=== PATIENT | male | born 1965 | race African-American/Black ===

== ENCOUNTER 2019-02-11 14:26 | Emergency (ER) | payer OTHER ==
[2019-02-11 14:54] VITALS: BP 150/95; TEMP 98.3
[2019-02-11] MEDS ORDERED: methylPREDNISolone SOD SUCCI 125 MG/2 ML VIAL IM ONE (15:13)
[2019-02-11] MEDS ORDERED: IPRATROPIUM-ALBUTEROL 3 ML NEB INHALATION STA (15:13)
[2019-02-11] MEDS ORDERED: LIDOCAINE 1% INJ 10MG/ML (20 ML MDV) SQ ONE (15:16)
--- NOTE | 2019-02-11 15:41 | XR ---
EXAMINATION TYPE: XR chest 2V DATE OF EXAM: 02/11/2019 COMPARISON: NONE HISTORY: Shortness of breath and chest pain TECHNIQUE: Frontal and lateral views of the chest are obtained. FINDINGS: There is pulmonary regurgitation related to underlying COPD. Right midlung atelectasis is seen along the right minor fissure. Peribronchial cuffing is seen centrally, most pronounced over the bronchus intermedius. Incidentally noted azygous fissure. Minimal degenerative changes of the thorac ic spine. Cardiomediastinal silhouette is within normal limits. Osseous structures appear intact. IMPRESSION: Radiographic findings of COPD and peribronchial cuffing that may relate to reactive or i nfectious airway disease particularly along the bronchus intermedius.
--- NOTE | 2019-02-11 15:46 | XR ---
EXAMINATION TYPE: XR hand complete LT DATE OF EXAM: 02/11/2019 CLINICAL HISTORY: Pain and swelling of the fifth digit for 3 days on the left hand with no known inju ry. TECHNIQUE: Frontal, lateral and oblique images of the left hand are obtained. COMPARISON: None. FINDINGS: There is no acute fracture/dislocation evident in the left hand. The joint spaces in the l eft hand appear within normal limits. There is focal soft tissue swelling over the radial aspect of t he distal interphalangeal joint of the left fifth digit without osseous erosion or periosteal reactio n. Osseous structures appear diffusely mildly demineralized throughout. IMPRESSION: 1. Focal soft tissue swelling of the radial aspect of the left fifth digit near the distal interphala ngeal joint. No radiographic evidence of osteomyelitis. 2. No acute fracture or dislocation in the left hand.
[2019-02-11 15:53] VITALS: RESP 18
--- NOTE | 2019-02-11 16:01 | ED ---
General Adult HPI - General Chief complaint: Shortness of Breath Stated complaint: Swollen & infected finger, cough SOB Time Seen by Provider: 02/11/19 15:04 Source: patient, RN notes reviewed, old records reviewed Mode of arrival: ambulatory Limitations: no limitations - History of Present Illness Initial comments: 54-year-old male presents emergency Department from [facility]. He presents for wheezing and cancer bronchitis is acting up. He has a history of a smoker. Patient also complains of swelling over his left fifth digit. He co mplains of having a swelling over his left 5th distal finger. The swelling is making it difficult from take the ring off. - Related Data Previous Rx's Medication Instructions Recorded Albuterol Inhaler [Ventolin Hfa 1 - 2 puff INHALATION RT-Q6H PRN 02/11/19 Inhaler] #1 inhaler Sulfamethox-Tmp 800-160Mg [Bactrim 2 tab PO Q12HR #40 tab 02/11/19 DS 800-160 mg] predniSONE 50 mg PO DAILY #5 tablet 02/11/19 Allergies Allergy/AdvReac Type Severity Reaction Status Date / Time Penicillins Allergy Rash/Hives Verified 02/11/19 14:54 Review of Systems ROS Statement: Those systems with pertinent positive or pertinent negative responses have been documented in the HPI. ROS Other: All systems not noted in ROS Statement are negative. Past Medical History Past Medical History: Hypertension History of Any Multi-Drug Resistant Organisms: None Reported Past Surgical History: Orthopedic Surgery Past Psychological History: No Psychological Hx Reported Smoking Status: Current every day smoker Past Alcohol Use History: Daily, Heavy Past Drug Use History: Marijuana General Exam - General Exam Comments Initial Comments: 54 year old male, no distress. Limitations: no limitations General appearance: alert, in no apparent distress Head exam: Present: atraumatic, normocephalic, normal inspection Eye exam: Present: normal appearance, PERRL, EOMI. Absent: scleral icterus, conjunctival injection, periorbital swelling ENT exam: Present: normal exam, mucous membranes moist Neck exam: Present: normal inspection. Absent: tenderness, meningismus, lymphadenopathy Respiratory exam: Present: normal lung sounds bilaterally, wheezes. Absent: respiratory distress, rales, rhonchi, stridor Cardiovascular Exam: Present: regular rate, normal rhythm, normal heart sounds. Absent: systolic murmur, diastolic murmur, rubs, gallop, clicks GI/Abdominal exam: Present: soft, normal bowel sounds. Absent: distended, tenderness, guarding, rebound, rigid Extremities exam: Present: normal inspection, full ROM, normal capillary refill, other (swelling and evidence of paronychia over distal 5th digit. Ring over finger. ). Absent: tenderness, pedal edema, joint swelling, calf tenderness Back exam: Present: normal inspection Neurological exam: Present: alert, oriented X3, CN II-XII intact Psychiatric exam: Present: normal affect, normal mood Skin exam: Present: warm, dry, intact, normal color. Absent: rash Course Vital Signs 02/11/19 02/11/19 02/11/19 14:50 14:54 16:01 Temperature 98.3 F Pulse Rate 63 68 Respiratory 20 18 Rate Blood Pressure 150/95 O2 Sat by Pulse 97 Oximetry 02/11/19 16:20 Temperature Pulse Rate 76 Respiratory Rate Blood Pressure O2 Sat by Pulse Oximetry Procedures - Incision & Drainage Indication: paronychia Site: hand (5th left finger) Size (cm): 2 Anesthetic Used: lidocaine 1% Amount (mLs): 3 I&D Cleaning Method: Iodine Sterile Field Used?: Yes Scalpel Used: #11 I&D Drainage Obtained: Pus, Blood Culture Obtained?: Yes Patient Tolerated Procedure: well, no complications Medical Decision Making - Medical Decision Making Patient is 54 year old male presents today with wheezing and COPD exacerbation, and paronychia over left 5th finger. Ring was removed with Raptor roberth, and paronychia drained. Aerobic wound culture completed. Patient given IM solumedrol, breathing treatment and wheezing is cleared. CXR shows COPD exacerbation findings. And Finger xray shows swelling, no fracture. Discussed treatment with antibiotics, steriods, and inhaler. - Radiology Data Radiology results: report reviewed Focal soft tissue swelling of the radial aspect of left fifth digit near the distal interphalangeal joint. No evidence of osteo-myelitis. No fracture dislocation left hand. Chest x-ray shows radiographic findings of COPD and peribronchial cuffing that may relate reactive infectious airway disease particularly along the bronchus intermedius. Disposition Clinical Impression: COPD exacerbation, Paronychia Disposition: HOME SELF-CARE Condition: Good Instructions (If sedation given, give patient instructions): Paronychia (ED), COPD (Chronic Obstructive Pulmonary Disease) (ED) Additional Instructions: Patient advised to follow-up with primary care physician. Return to emergency department if any alarming signs or symptoms occur. She should do frequent warm soaks of the finger. Complete her antibiotic prescription and use the steroid prescription inhaler as directed. Prescriptions: Sulfamethox-Tmp 800-160Mg [Bactrim DS 800-160 mg] 2 tab PO Q12HR #40 tab predniSONE 50 mg PO DAILY #5 tablet Albuterol Inhaler [Ventolin Hfa Inhaler] 1 - 2 puff INHALATION RT-Q6H PRN #1 inhaler PRN Reason: Shortness Of Breath Is patient prescribed a controlled substance at d/c from ED?: No Referrals: Shalom Bey MD [Primary Care Provider] - 1-2 days Time of Disposition: 16:47
[2019-02-11 16:50] VITALS: PULSE 76
== END 2019-02-11 17:08 | disposition home or self-care (01) ==
LOC: EC 14:26
DX: J44.1 Chronic obstructive pulmonary disease with (acute) exacerbation (principal); L03.012 Cellulitis of left finger; F17.200 Nicotine dependence, unspecified, uncomplicated; Z88.0 Allergy status to penicillin
CPT/HCPCS: 94640; 87070; 87205; 87077; 87186; 73130; 71046; 99285; 10060; 96372; J2930; J2001